=== PATIENT | male | born 1970 | race Two or more races ===

== ENCOUNTER 2021-08-05 09:12 | Emergency (ER) | payer OTHER ==
[2021-08-05 09:18] VITALS: BMI 24.1
[2021-08-05] MEDS ORDERED: ASPIRIN 81 MG CHEWABLE TABLETS PO ONE (09:40)
[2021-08-05] MEDS ORDERED: ASPIRIN 325 MG TABLET ONE (09:48)
[2021-08-05 10:34] LABS: BASO % 0.9 % (0-2.0); EOS % 3.8 % (0-4.5); HEMATOCRIT 45.9 % (35.4-49); HEMOGLOBIN 16.5 GM/dL (11.7-16.9); LYMPH % 26.8 % (8-40); MCH 31.8 pg (25.7-33.7); MEAN CELL VOLUME 88.5 fl (80-96); MONO % 5.9 % (3.8-10.2); NEUT % 62.6 % (42.8-82.8); PLATELET COUNT 198 10^3/uL (134-434); RBC 5.19 M/mm3 (4.00-5.60); RDW 13.4 % (11.9-15.9); WHITE BLOOD COUNT 4.2 K/mm3 (4.0-10.0)
[2021-08-05 10:39] LABS: INR 0.88 (0.83-1.09); PROTHROMBIN TIME (PATIENT) 10.1 SEC (9.7-13.0)
[2021-08-05 10:50] LABS: ALBUMIN 3.4 g/dl (3.4-5.0); BLOOD UREA NITROGEN 13.8 mg/dL (7-18); MAGNESIUM 2.1 mg/dL (1.8-2.4)
[2021-08-05 10:53] LABS: CREATININE 0.8 mg/dL (0.55-1.3)
[2021-08-05 10:54] LABS: BILIRUBIN,TOTAL 0.5 mg/dL (0.2-1); TOT PROT 7.1 g/dl (6.4-8.2)
[2021-08-05] MEDS ORDERED: ENALAPRIL MALEATE 10 MG TABLET PO ONE (13:29)
[2021-08-05] MEDS ORDERED: ENALAPRIL MALEATE 5 MG TABLET ONE (13:32)
[2021-08-05 13:55] VITALS: TEMP 99.2
[2021-08-05 14:28] VITALS: BP 167/96; PULSE 84
== END 2021-08-05 14:35 | disposition home or self-care (01) ==
LOC: JER 09:12
DX: R07.9 Chest pain, unspecified (principal)
CPT/HCPCS: 36415; 71046-TC-FY; 80053; 83735; 84484; 85025; 85610; 85730; 93005; 93010; 99285-25

== ENCOUNTER 2021-11-20 10:53 | Emergency (ER) | payer OTHER ==
[2021-11-20 11:01] VITALS: BP 119/77; RESP 16; TEMP 97.8; BMI 24.6
[2021-11-20] MEDS ORDERED: SODIUM CHLORIDE 1,000 ML IV STA (11:31)
[2021-11-20] MEDS ORDERED: MECLIZINE HCL 25 MG TABLET (FP) PO ONE (11:32)
[2021-11-20] MEDS ORDERED: ACETAMINOPHEN 1000 MG/100 ML BAG IVPB ONE (11:32)
[2021-11-20] MEDS ORDERED: MECLIZINE HCL 25 MG TABLET (FP) ONE (11:35)
[2021-11-20] MEDS ORDERED: ACETAMINOPHEN INJECTION 100 ML IVPB ONE (11:35)
[2021-11-20 11:58] LABS: BASO % 0.7 % (0-2.0); EOS % 1.7 % (0-4.5); HEMATOCRIT 39.8 % (35.4-49); HEMOGLOBIN 14.3 GM/dL (11.7-16.9); LYMPH % 28.7 % (8-40); MCH 31.2 pg (25.7-33.7); MCHC 35.8 g/dl (32.0-35.9); MEAN CELL VOLUME 87.2 fl (80-96); MEAN PLT VOLUME 7.3 fl (7.5-11.1); NEUT % 61.9 % (42.8-82.8); PLATELET COUNT 177 10^3/uL (134-434); RBC 4.57 M/mm3 (4.00-5.60); RDW 12.6 % (11.9-15.9); WHITE BLOOD COUNT 4.5 K/mm3 (4.0-10.0)
[2021-11-20 12:24] LABS: CALCIUM 8.7 mg/dL (8.5-10.1)
[2021-11-20 12:25] LABS: ALBUMIN 3.2 g/dl (3.4-5.0); BLOOD UREA NITROGEN 26.1 mg/dL (7-18)
[2021-11-20 12:29] LABS: TOT PROT 6.4 g/dl (6.4-8.2)
[2021-11-20 12:30] LABS: BILIRUBIN,TOTAL 0.4 mg/dL (0.2-1)
[2021-11-20 13:47] VITALS: PULSE 64
== END 2021-11-20 13:30 | disposition home or self-care (01) ==
LOC: JER 10:53
PROC: 3E033NZ Introduction of Analgesics, Hypnotics, Sedatives into Peripheral Vein, Percutaneous Approach (ICD-10-PCS; principal; 2021-11-20)
PROC: 3E0337Z Introduction of Electrolytic and Water Balance Substance into Peripheral Vein, Percutaneous Approach (ICD-10-PCS; 2021-11-20)
DX: R42 Dizziness and giddiness (principal)
CPT/HCPCS: 36415; 80053; 85025; 99284-25